=== PATIENT | male | born 1960 | race African-American/Black ===

== ENCOUNTER 2018-03-27 10:29 | Emergency (ER) | payer OTHER ==
[~2018-03-27] VITALS: Ht 180.3 cm; Wt 99.8 kg
[2018-03-27 10:58] LABS: Basophils # (auto) 0 uL; Eosinophils # (auto) 0.2 uL; Hematocrit 41.2 % (41.0-53.0); Hemoglobin 13.4 g/dL (13.5-17.5); Lymphocytes # (auto) 1.8 uL; Monocytes # (auto) 0.5 uL; Neutrophils # (auto) 1.2 uL; Nucleated Red Blood Cells % 0.1 %
[2018-03-27 11:01] LABS: Basophils % (auto) 0.6 % (0.0-2.0); Eosinophils % (auto) 4.4 % (0.0-7.0); Lymphocytes % (auto) 48.3 % (10.0-50.0); Mean Corpuscular Hemoglobin 26.6 pg (28.0-32.0); Mean Corpuscular Hgb Conc. 32.5 g/dL (32.0-36.0); Monocytes % (auto) 13.3 % (0.0-12.0); Neutrophils % (auto) 33.4 % (37.0-80.0); Platelet Count (auto) 235 10^3/uL (140-450); Red Blood Cells 5.02 10^6/uL (4.5-5.90); Red Cell Distribution Width 16.4 % (11.8-14.3); White Blood Cell 3.7 10^3/uL (4.4-10.8)
[2018-03-27 11:15] LABS: Urine Bacteria NONE SEEN /hpf (None Seen); Urine Blood Negative /uL (Negative); Urine Mucus FEW (None Seen); Urine Specific Gravity 1.027 (1.001-1.035); Urine WBC 9 /hpf (0 - 3)
[2018-03-27 11:26] LABS: BUN/Creatinine Ratio 14.1; Calcium 8.5 mg/dL (8.5-10.1); Potassium 3.9 mmol/L (3.5-5.1); Total Protein 7.9 g/dL (6.4-8.2)
[2018-03-27 12:11] LABS: Alcohol, Urine < 3.0 mg/dL (0-5); Amphetamine Screen, Urine POSITIVE (NEGATIVE); Barbiturate Scree,Urine NEGATIVE (NEGATIVE); Benzodiazephine Screen, Urine NEGATIVE (NEGATIVE); Cannabinoid Screen, Urine NEGATIVE (NEGATIVE); Cocaine Screen, Urine NEGATIVE (NEGATIVE); Opiate Scree,Urine NEGATIVE (NEGATIVE); Phencyclidine Screen, Urine NEGATIVE (NEGATIVE)
[2018-03-27 14:39] VITALS: BP 145/91
== END 2018-03-27 15:50 | disposition left against medical advice (07) ==
LOC: ER 10:29
DX: R07.89 Other chest pain (principal); F15.90 Other stimulant use, unspecified, uncomplicated
CPT/HCPCS: 36415; 80053; 80307; 81001; 85025; 93005

== ENCOUNTER 2019-03-07 17:20 | Emergency (ER) | payer SELFPAY ==
[~2019-03-07] VITALS: Ht 180.3 cm; Wt 102.1 kg
[2019-03-07] MEDS ORDERED: METHOCARBAMOL 500 MG TAB PO ONE (21:15)
[2019-03-07] MEDS ORDERED: ACETAMINOPHEN 325 MG TAB PO ONE (21:15)
[2019-03-07] MEDS ORDERED: cloNIDine HCL 0.1 MG TAB PO ONE (22:15)
[2019-03-07 22:45] VITALS: BP 156/100
== END 2019-03-07 22:53 | disposition home or self-care (01) ==
LOC: ER 17:32
DX: M62.838 Other muscle spasm (principal); V43.62XA Car passenger injured in collision with other type car in traffic accident, initial encounter; Y93.89 Activity, other specified; Y99.8 Other external cause status; Y92.410 Unspecified street and highway as the place of occurrence of the external cause
CPT/HCPCS: 72040; 73030